=== PATIENT | male | born 1950 | race Caucasian/White ===

== ENCOUNTER 2019-12-30 18:03 | Observation (INO) | payer MEDICARE, OTHER ==
[2019-12-30] MEDS ORDERED: NS 0.9% 1000 ML** 1,000 ML IV ONE (18:09)
--- NOTE | 2019-12-30 18:28 | ED ---
GI/ HPI - HPI Summary HPI Summary: This pt is a 69 Y/O M presenting to [facility] with a CC of left flank pain that is rated an 8/10 in severity and has been present for 6 hours. He denies any fever , CP, headaches, SOB, vomiting, and hematuria. He states that the pain feels deep inside his body and not surface level like a muscle. He also reports nausea during the 6 hours. He states that he has a Hx of kidney stones but reports that this pain is very different than his normal stones. He denies any dysuria. He has no aggravating or alleviating factors. - History of Current Complaint Chief Complaint: EDFlankPain Time Seen by Provider: 12/30/19 18:05 Stated Complaint: LEFT FLANK PAIN Hx Obtained From: Patient Onset/Duration: Started Hours Ago - 6, Still Present Timing: Constant, Lasting Hours - 6 Current Severity: Severe Pain Intensity: 8 Location of Pain: Flank - L Associated Signs and Symptoms: Positive: Negative - fever headaches, Nausea, Flank Pain - L. Negative: Vomiting, Fever, Hematuria, Dysuria, Chills, Chest Pain Aggravating Factor(s): Nothing Alleviating Factor(s): Nothing - Allergy/Home Medications Allergies/Adverse Reactions: Allergies Allergy/AdvReac Type Severity Reaction Status Date / Time No Known Allergies Allergy Verified 12/30/19 18:07 Home Medications: Home Medications NK [No Home Medications Reported] 12/30/19 [History Confirmed 12/30/19] PMH/Surg Hx/FS Hx/Imm Hx Previously Healthy: Yes Endocrine/Hematology History: Denies: Hx Diabetes Cardiovascular History: Denies: Hx Hypertension Respiratory History: Denies: Hx Pneumonia History: Reports: Hx Kidney Stones Sensory History: Reports: Hx Contacts or Glasses Opthamlomology History: Reports: Hx Contacts or Glasses - Cancer History Hx Chemotherapy: No Hx Radiation Therapy: No - Surgical History Surgical History: Yes Surgery Procedure, Year, and Place: Kidney stone removal. stent placement - Immunization History Immunizations Up to Date: Yes Infectious Disease History: No Infectious Disease History: Denies: Traveled Outside the [place] in Last 30 Days - Family History Known Family History: Positive: Hypertension - Social History Occupation: Retired Lives: Alone Alcohol Use: Occasionally Hx Substance Use: No Substance Use Type: Reports: None Hx Tobacco Use: No Smoking Status (MU): Never Smoked Tobacco Review of Systems Negative: Fever, Chills Negative: Chest Pain Negative: Shortness Of Breath Positive: Nausea. Negative: Vomiting Positive: flank pain - L. Negative: dysuria, hematuria Negative: Headache All Other Systems Reviewed And Are Negative: Yes Physical Exam - Summary Physical Exam Summary: VITAL SIGNS: Reviewed. GENERAL: Patient is a well-developed and nourished male who is lying comfortable in the stretcher. Patient is not in any acute respiratory distress. HEAD AND FACE: No signs of trauma. No ecchymosis, hematomas or skull depressions. No sinus tenderness. EYES: PERRLA, EOMI x 2, No injected conjunctiva, no nystagmus. EARS: Hearing grossly intact. Ear canals and tympanic membranes are within normal limits. MOUTH: Oropharynx within normal limits. NECK: Supple, trachea is midline, no adenopathy, no JVD, no carotid bruit, no c- spine tenderness, neck with full ROM. CHEST: Symmetric, no tenderness at palpation. LUNGS: Clear to auscultation bilaterally. No wheezing or crackles. CVS: Regular rate and rhythm, S1 and S2 present, no murmurs or gallops appreciated. ABDOMEN: Soft, focal L sided flank tenderness, No signs of distention. No rebound, no guarding, and no masses palpated. Bowel sounds are normal. EXTREMITIES: FROM in all major joints, no edema, no cyanosis or clubbing. NEURO: Alert and oriented x 3. No acute neurological deficits. Speech is normal and follows commands. SKIN: Dry and warm. Triage Information Reviewed: Yes Vital Signs On Initial Exam: Initial Vitals Temp Pulse Resp BP Pulse Ox 98.2 F 84 18 186/113 94 12/30/19 18:05 12/30/19 18:05 12/30/19 18:05 12/30/19 18:05 12/30/19 18:05 Vital Signs Reviewed: Yes Procedures - Sedation Patient Received Moderate/Deep Sedation with Procedure: No Diagnostics - Vital Signs Vital Signs Temp Pulse Resp BP Pulse Ox 12/30/19 18:05 98.2 F 84 18 186/113 94 - Laboratory Result Diagrams: 12/30/19 18:21 12/30/19 18:21 Lab Statement: Any lab studies that have been ordered have been reviewed, and results considered in the medical decision making process. - CT CT A/P CT Interpretation Completed By: Radiologist Summary of CT Findings: 1. Mildly obstructing 23 mm calculus left UPJ. 2. Bilateral nephrolithiasis. ED physician has reviewed this report. Re-Evaluation - Re-Evaluation First Eval Re-Evaluation Time: 21:07 Comment: Pt prefers admission for pain control. Dr. De León available tomorrow for consultation. GIGU Course/Dx - Course Course Of Treatment: This pt is a 69 Y/O M presenting to [facility] with a CC of left flank pain that is rated an 8/10 in severity and has been present for 6 hours. He denies any fever, CP, headaches, SOB, vomiting, and hematuria. He states that the pain feels deep inside his body and not surface level like a muscle. His PE found that he has focal L sided flank pain. CT A/P: 1. Mildly obstructing 23 mm calculus left UPJ. 2. Bilateral nephrolithiasis. . He has an abnormalitiy in his APTT level. 2011: Dr. De León, urology, was consulted and stated that the pt would be ok with outpatient care tomorrow depending on his pain level. If the pt is in severe pain and needs increased management, he will be admitted to the hospitalist. Pt will be admitted to [facility] for pain management by Dr. Rodriguez, Hospitalist, at 2127. [employer] has agreed to consultation tomorrow. Pt will most likely need a Stent. - Diagnoses Provider Diagnoses: Left ureteral calculus - Physician Notifications Discussed Care Of Patient With: Julio Rodriguez Time Discussed With Above Provider: 21:29 Instructed by Provider To: Admit As Inpatient Admit/Transition Orders Completed By ED Provider: Yes Discharge ED - Sign-Out/Discharge Documenting (check all that apply): Patient Departure - admitted - Discharge Plan Condition: Good Disposition: ADMITTED TO [facility] Referrals: Harpreet De León MD [Medical Doctor] - As Soon As Possible - Billing Disposition and Condition Condition: GOOD Disposition: Admitted to [facility] - Attestation Statements Document Initiated by Scribe: Yes Documenting Scribe: Jaspal Rhoades Provider For Whom Scribe is Documenting (Include Credential): Rogerio Benjamin MD Scribe Attestation: Jaspal Hedrick, scribed for Rogerio Benjamin MD on 12/30/19 at 2144. Scribe Documentation Reviewed: Yes Provider Attestation: The documentation as recorded by the scribe, Jaspal Rhoades accurately reflects the service I personally performed and the decisions made by me, Rogerio Benjamin MD Status of Scribe Document: Viewed
[2019-12-30 18:30] LABS: ABS Basophils 0.1 10^3/ul (0-0.2); ABS Eosinophils 0.2 10^3/ul (0-0.6); ABS Lymphocytes 1.8 10^3/ul (1.0-4.8); ABS Monocytes 1.2 10^3/ul (0-0.8); ABS Neutrophils 7.1 10^3/ul (1.5-7.7); Eosinophil % 2.2 %; Hematocrit 48 % (42-52); Hemoglobin 16.2 g/dL (14.0-18.0); Mean Corpuscular HGB Conc 34 g/dL (31-36); Mean Corpuscular Hemoglobin 30 pg (27-31); Mean Corpuscular Volume 87 fL (80-94); Mean Platelet Volume 7.2 fL (7.4-10.4); Platelet Count 198 10^3/uL (150-450); Red Blood Count 5.46 10^6 /uL (4.18-5.48); Red Cell Distribution Width 15 % (10-15); White Blood Count 10.3 10^3/uL (3.5-10.8)
[2019-12-30 18:47] LABS: Albumin 4.1 g/dL (3.2-5.2); Albumin/Globulin Ratio 1.5 (1-3); BUN/Creatinine Ratio 17.8 (8-20); Calcium 9.5 mg/dL (8.6-10.3); EGFR African American 100.7 (>60); EGFR Non-African American 83.2 (>60); Globulin 2.8 g/dL (2-4); Potassium 4.1 mmol/L (3.5-5.0); Total Bilirubin 0.4 mg/dL (0.2-1.0); Total Protein 6.9 g/dL (6.4-8.9)
[2019-12-30 19:44] LABS: Urine Appearance Cloudy; Urine Bilirubin Negative (Negative); Urine Blood 3+ (Negative); Urine Color Yellow; Urine Glucose Negative (Negative); Urine Ketones Negative (Negative); Urine Nitrite Negative (Negative); Urine Protein Negative (Negative); Urine Specific Gravity 1.015 (1.010-1.030); Urine Urobilinogen Negative (Negative)
[2019-12-30 19:46] LABS: Urine Bacteria Absent (Absent); Urine Red Blood Cell 3+(>10/hpf) (Absent); Urine White Blood Cell Trace(0-5/hpf) (Absent)
[2019-12-30 19:48] LABS: Activated Partial Thrombo Time 38.9 seconds (26.0-38.0); INR 1.05 (0.82-1.09)
[2019-12-30] MEDS ORDERED: Ondansetron INJ* 2 MG/ML VIAL IV ONE (19:53)
[2019-12-30] MEDS ORDERED: Morphine 4 MG/ML VIAL (1 ml) 4 MG/ML VIAL IV ONE (19:53)
[2019-12-30] MEDS ORDERED: Ketorolac INJ* 30 MG/ML 1 ML VIAL IV PUSH ONE (19:54)
[2019-12-30] MEDS ORDERED: Tamsulosin CAP* 0.4 MG PO ONE (20:11)
[2019-12-30] MEDS ORDERED: Acetaminophen TAB* 325 MG PO PRN (22:16)
[2019-12-30] MEDS ORDERED: Ondansetron INJ* 2 MG/ML VIAL IV PRN (22:16)
[2019-12-30] MEDS ORDERED: NS 0.9% 1000 ML** 1,000 ML IV SCH ×3 (22:30→22:34)
[2019-12-31] MEDS: Heparin VIAL(*) 5000 UNITS/ML VIAL (FIVE THOUSAND) SUBCUT SCH ×3 (00:28→14:19)
[2019-12-31] MEDS: Morphine INJ* 4 MG/ML 1 ML SYRINGE (NEW SYRINGE VERSION) IV PRN ×2 (00:34→04:52)
--- NOTE | 2019-12-31 01:45 | HP ---
CC: Dr. Sahu; Dr. De León * HISTORY AND PHYSICAL: DATE OF ADMISSION: 12/30/19. PRIMARY CARE PROVIDER: Dr. Sahu. ATTENDING PHYSICIAN WHILE IN THE HOSPITAL: Dr. Rodriguez * (report being dictated by Luba Velasco NP). CONSULTING UROLOGIST: Dr. De León. CHIEF COMPLAINT: Left flank pain. HISTORY OF PRESENT ILLNESS: Mr. Suggs is a 69-year-old male patient, who has a history of nephrolithiasis in the past, requiring ureteral stenting back in 2011. He also carries a history of hypertension, although he is not on any medications for it. He comes in today. He states for the last year, he has been having intermittent left-sided flank pain. That was a 3-4 out of 10 pain. That would go away after he had a bowel movement. However, over the last 24 hours, he has had progressive worsening left flank pain that is as high as a 10/ 10. He notes that the pain started getting more sharp and intense throughout the day today. It started this afternoon. He thought it was a typical pain. However, he noted that it progressively was getting worse. He went home. He tried eating something. He was going to take a nap, but unfortunately, the pain just kept getting progressively worse. He could not lay on the left side. He felt nauseated, but did not vomit. He was concerned, he called his brother and said that he would like to be taken to the hospital and his brother brought him into the hospital to be evaluated. He states that he has not had any fevers or chills. He has not had any recent diarrhea. He has not had any vomiting associated with this, but given the fact that he was having left sided abdominal pain. He was evaluated here in the ER and ultimately was found to have a mildly obstructive 2.3 cm stone at the left UVJ with bilateral nephrolithiasis noted and because of this we were asked to evaluate for admission. He denies having any chest pain or shortness of breath. He does state that he is very active. He does not have chest pain or shortness of breath associated with activity. He states that he has not been sick recently. No fevers, chills or vomiting. No diarrhea. No cold-like or cough-like symptoms and no recent travel, but because of the obstructing stone and the size , we were asked to evaluate for admission. He took 2 aspirin today to help with the pain, but it did not help. PAST MEDICAL HISTORY: Significant for: 1. Nephrolithiasis. 2. Kidney stones. PAST SURGICAL HISTORY: 1. He has had an appendectomy. 2. Back surgery. 3. He has had lithotripsy in the past. HOME MEDICATIONS: He does state that he takes aspirin 325 p.o. daily. ALLERGIES: His allergies to medications include no known drug allergies. FAMILY HISTORY: His mother had a history of cancer. Father had a brain aneurysm. SOCIAL HISTORY: He rarely drinks alcohol. He used to smoke. He quit over 20 years ago. He smoked for about 20 years. Surrogate decision maker is his sister and his brother. REVIEW OF SYSTEMS: There is no documented fever. Denied having any significant weight change. There is no rhinorrhea. No sore throat. No thyroid enlargement. Denied having any chest pain. There is no orthopnea. No nocturnal dyspnea. There was abdominal pain from my HPI in the left flank. There was nausea, but no vomiting. No dysuria, no frequency, no seizure, no loss of consciousness, no pruritus, and no skin ulcerations. Review of 14 systems completed, all others negative. PHYSICAL EXAMINATION GENERAL: At this time, Mr. Suggs is a 69-year-old male patient. He is sitting in the ED stretcher. He does not appear to be in any acute distress. He appears to be well nourished and well developed. VITAL SIGNS: Blood pressure 185/92, pulse 74, respirations 20, O2 saturation 98 %, and temperature 97.8. HEENT: Head atraumatic, normocephalic. Eyes: EOMs are intact. Sclerae anicteric and not pale. Throat: Oral mucosa appears to be moist. No oropharyngeal erythema. NECK: Supple. LUNGS: Clear to auscultation bilaterally. No wheezes, rales or rhonchi. HEART: Heart sounds S1, S2. He had a regular rate and rhythm. No murmurs, rubs or gallops. ABDOMEN: Soft. It was flat. It was nontender. Bowel sounds were present. He had no CVA tenderness. EXTREMITIES: Pulses were 2+ throughout. He is moving all 4 extremities with 5/ 5 strength. No peripheral edema. NEUROLOGIC: He is awake, alert, and oriented x3. Speech clear. Tongue was midline. Civil Drafter were equal. No focal deficits noted. SKIN: Intact. DIAGNOSTIC STUDIES/LAB DATA: His lab today revealing a WBC of 10.3, RBC of 5.46 , hemoglobin of 16.2, hematocrit of 48, platelet count 198. The INR 1.05, PTT of 38.9. Sodium 137, potassium 4.1, chloride 104, bicarb 27, BUN 16, creatinine of 0.90, glucose 114, calcium 9.5. Total bili is 0.48, AST 21, ALT 25, alk-phos 71. Albumin 4.1. Urine showed 3+ blood, 3+ rbc's. He had a CT of the abdomen and pelvis, impression: Mildly obstructing 23 mm calculus left UPJ, bilateral nephrolithiasis. Old medical records were reviewed. ASSESSMENT AND PLAN: Mr. Suggs is a 69-year-old male patient coming into the ED today with complaints of abdominal discomfort and worsening in the left flank and evaluation in the ED with CT abdomen and pelvis found that he had a 23 -mm obstructing stone in the left side. Urology was consulted by the ED. We were asked to evaluate for admission to be admitted under observation status for : 1. Nephrolithiasis to the left kidney with mild obstruction. At this point, Dr. De León has been consulted. The plan will be for possible stenting and lithotripsy tomorrow. In terms of medical re-stratification, his EKG shows no acute findings at this point and shows a normal sinus rhythm with a rate at 85. No ST elevation or T-wave inversion noted. He again is active and is not having any active chest pain. I am awaiting chest x-ray, pending any discrepancies with the chest x-ray. He will be medically optimized for surgery. His blood pressure was elevated. However, that was in the setting of pain, I am going to monitor this closely and we will treat if needed. I will defer further management to Dr. De León. I am going to go ahead and strain his urine. I have ordered medications for pain control and Zofran for nausea, and we will keep him on normal saline at 125 cc an hour while he is n.p.o. and I will defer further management to Dr. De León, and has been given Flomax. 2. Hypertension. Again, he has not been treated for this for sometime. Blood pressure when he came was elevated; however, that could have been in the setting of pain, we will monitor this and treat if indicated. I would treat for systolics greater than 180 and diastolics greater than 100. 3. DVT prophylaxis: He will be placed on heparin subcu, he is high risk. 4. Code status: Full code. 5. Fluids, electrolytes, and nutrition: He will be n.p.o. after midnight. He can have a heart healthy diet up until then. TIME SPENT: Time spent on the admission was 60 minutes, greater than half the time was spent [id number] with the patient obtaining my history of physical; the other half time was spent going over the plan of care with the patient and implementing plan of care. I did discuss the plan of care with my attending, Dr. Rodriguez; he is in agreement. LUBA VELASCO NP [id number]/[facility] #: [id number] BETTY
[2019-12-31] MEDS ORDERED: NS 0.9% 500 ML* 500 ML IV ONE (05:49)
[2019-12-31] MEDS ORDERED: NS 0.9% 1000 ML** 1,000 ML IV SCH (05:50)
[2019-12-31] MEDS ORDERED: Ketorolac INJ* 15 MG/ML 1 ML VIAL IV PUSH ONE (06:29)
[2019-12-31 07:08] LABS: ABS Basophils 0.1 10^3/ul (0-0.2); ABS Eosinophils 0.1 10^3/ul (0-0.6); ABS Lymphocytes 1.1 10^3/ul (1.0-4.8); ABS Monocytes 0.9 10^3/ul (0-0.8); ABS Neutrophils 5.3 10^3/ul (1.5-7.7); Eosinophil % 1.9 %; Hematocrit 43 % (42-52); Hemoglobin 14.7 g/dL (14.0-18.0); Lymphocyte % 14.2 %; Mean Corpuscular HGB Conc 34 g/dL (31-36); Mean Corpuscular Hemoglobin 30 pg (27-31); Mean Corpuscular Volume 88 fL (80-94); Mean Platelet Volume 7.5 fL (7.4-10.4); Platelet Count 159 10^3/uL (150-450); Red Blood Count 4.95 10^6 /uL (4.18-5.48); Red Cell Distribution Width 15 % (10-15); White Blood Count 7.6 10^3/uL (3.5-10.8)
[2019-12-31 07:15] LABS: INR 1.11 (0.82-1.09)
[2019-12-31 07:26] LABS: BUN/Creatinine Ratio 18.3 (8-20); Calcium 8.3 mg/dL (8.6-10.3); EGFR African American 85.2 (>60); EGFR Non-African American 70.4 (>60); Potassium 4.2 mmol/L (3.5-5.0)
[2019-12-31] MEDS ORDERED: Buffered Lidocaine 1% SYRIN* 1 ML/SYRINGE INTRADERM ONE (08:33)
[2019-12-31] MEDS ORDERED: Famotidine IV* 10 MG/ML 2 ML (20 mg) IV ONE (08:33)
[2019-12-31] MEDS ORDERED: Lactated Ringers 1000 ML Bag* 1,000 ML IV SCH (09:00)
[2019-12-31] MEDS ORDERED: Iohexol 180 (CONTRAST) 10 ML SDV IV ONE (11:14)
[2019-12-31] MEDS ORDERED: fentaNYL* 50 MCG/ML 2 ML VIAL (100 MCG VIAL) ONE (11:16)
[2019-12-31] MEDS ORDERED: KETAMINE HCL* 50 MG/ML 10 ML VIAL ONE (11:17)
[2019-12-31] MEDS ORDERED: Midazolam* 1 MG/ML 5 ML VIAL (5 MG) ONE (11:17)
[2019-12-31] MEDS ORDERED: cefTRIAXone(*) 2 GM ADDV.VIAL IVPB ONE (12:20)
[2019-12-31] MEDS ORDERED: Lidocaine 2% PF * 5 ML VIAL ONE (12:59)
[2019-12-31] MEDS ORDERED: Ondansetron INJ* 2 MG/ML VIAL ONE (12:59)
[2019-12-31] MEDS ORDERED: Propofol* 10 MG/ML 20 ML BTL ONE (12:59)
[2019-12-31] MEDS ORDERED: Phenylephrine 40 MCG/ML SYRINGE ONE (12:59)
[2019-12-31] MEDS ORDERED: Dexamethasone IV* 4 MG/ML 1 ML (4 MG) ONE (12:59)
[2019-12-31] MEDS ORDERED: Acetaminophen IV 1GM/100ML * 100 ML ONE (12:59)
[2019-12-31] MEDS ORDERED: HYDROmorphone INJ1* 1 MG/ML SYRINGE IV PRN (13:18)
[2019-12-31] MEDS ORDERED: DiMENhydriNATE IV* 50 MG/ML VIAL IV PUSH PRN (13:18)
[2019-12-31] MEDS ORDERED: oxyCODONE TAB* 5 MG TAB PO PRN (13:18)
[2019-12-31] MEDS ORDERED: Naloxone* 0.4 MG/ML 1 ML VIAL IV PRN (13:18)
[2019-12-31] MEDS ORDERED: PROCHLORPERAZINE INJ 5 MG/ML 2 ML VIAL IV PRN (13:18)
[2019-12-31] MEDS ORDERED: fentaNYL* 50 MCG/ML 2 ML VIAL (100 MCG VIAL) IV PRN (13:18)
[2019-12-31] MEDS ORDERED: Ketorolac INJ* 30 MG/ML 1 ML VIAL IV PRN (13:18)
[2019-12-31] MEDS ORDERED: oxyCODONE/Acetamin 5/325 MG* TAB PO PRN (14:22)
[2019-12-31] MEDS ORDERED: LR @ 40 MLS/HR IV SCH (15:00)
[2019-12-31 16:36] VITALS: BP 159/97
--- NOTE | 2020-01-01 00:35 | OP ---
CC: Dr. Mikhail Sahu * DATE OF OPERATION: 12/31/19 - ROOM #348 DATE OF : 46 SURGEON: Harpreet De León MD. ANESTHESIOLOGIST: Dr. Dennis Mobley. ANESTHESIA: General. PRE-OP DIAGNOSES: 1. Left renal colic. 2. Large left renal calculus (2.5 cm). 3. Left hydronephrosis due to above. POST-OP DIAGNOSES: 1. Left renal colic. 2. Large left renal calculus (2.5 cm). 3. Left hydronephrosis due to above. OPERATIVE PROCEDURE: 1. Cystoscopy. 2. Left retrograde pyelography. 3. Insertion of left ureteral stent (6 Haitian). INDICATION FOR PROCEDURE: Mr. Suggs is a 69-year-old white male who presented to the emergency room last night with symptoms of left renal colic. There was no associated fever or chills and his urinalysis showed microscopic hematuria was negative otherwise. Noncontrast CT of the abdomen and pelvis showed moderate left hydronephrosis and there was a 2.5 cm calculus in the left renal pelvis and a 3 to 5 mm calculus in the proximal left ureter. The patient was managed with pain medication and IV fluids. He is taken to the operating room today for insertion of a left ureteral stent in preparation for definitive treatment of the stone. PATHOLOGY: At cystoscopy, the penile and bulbar urethrae looked normal. The prostatic urethra measured about 3 cm in length and with significant degree of obstruction by trilobar hyperplasia of the prostate with a prominent median lobe. The ureteral orifices looked normal. There were no suspicious bladder lesions seen. No calculi and no diverticula were noted. There was minimal bladder trabeculations. Upon fluoroscopy of the left kidney and at left retrograde pyelography, there was moderate left hydronephrosis and a large radiopaque calculus in the area of the renal pelvis just above the ureteropelvic junction. DESCRIPTION OF PROCEDURE: After successful general anesthesia, the patient was placed in the lithotomy position and was prepped and draped for a cystoscopy. Cystoscopy was performed. The bladder was carefully inspected and the above findings were noted. A flexible-tip hybrid guidewire was then introduced into the left ureteral orifice and passed without difficulty into the area of the renal pelvis beyond the renal calculus. Retrograde pyelography was then performed, demonstrating the hydronephrosis and confirming the location of the calculus in the renal pelvis. A 6-Haitian stent was then placed with the proximal end coiling in the renal pelvis adjacent to the stone and the distal end coiling inside the bladder. There was good drainage of contrast from the kidney and no extravasation. The bladder was then emptied. The cystoscope was removed. A rectal examination was done at the end of the case, showing an enlarged but non-suspicious prostate. The patient tolerated the procedure well and left the operating room in good condition. The plan is to refer the patient to [facility] where he will undergo percutaneous lithotripsy for definitive treatment of the stone. [id number]/[facility] #: [id number] MTDD
--- NOTE | 2020-01-01 13:25 | DS ---
CC: Dr. Mikhail Sahu; Dr. De León * DISCHARGE SUMMARY: DATE OF ADMISSION: 12/30/19 DATE OF DISCHARGE: 12/31/19 PRIMARY CARE PROVIDER: Mikhail Sahu MD ATTENDING PHYSICIAN: Dr. Sumaya Hopkins.* (DICTATED BY DEBO MEHTA) UROLOGIST: Dr. De León. PRIMARY DIAGNOSIS: Left nephrolithiasis with mild obstruction, status post ureteral stent placement. SECONDARY DIAGNOSIS: History of nephrolithiasis. STUDIES WHILE IN THE HOSPITAL: 1. CT abdomen and pelvis without, impression: Mildly obstructing 23 mm calculus left UPJ, bilateral nephrolithiasis. 2. Chest x-ray, impression: Limited study, no active cardiopulmonary disease. 3. KUB, impression: Left nephrolithiasis with left ureteral stent. DISCHARGE MEDICATIONS: Home medications: None. New home medications: Ibuprofen as needed for pain. HISTORY OF PRESENT ILLNESS/HOSPITAL COURSE: Mr. Suggs is a 69-year-old male with a past medical history of nephrolithiasis with a history of stenting in 2011, who presented to the ER on 12/30/19 with complaints of left flank pain. He was found to have a 2.3 cm stone at the left UPJ that was obstructive as well as bilateral nephrolithiasis. For this, the patient was admitted with consult to Urology. The patient did not appear to have any hydronephrosis. His kidney function appeared to be intact throughout his stay. The day after admission, the patient had a left ureteral stent placed. Prior to discharge, a KUB was done which shows proper placement of ureteral stent with continued left nephrolithiasis. The patient will be discharged home on ibuprofen. He will have very close followup with Dr. De León, who will consult urologist at [facility] and arrange for an appointment for lithotripsy. The patient understands and is agreeable to this. At this time, he reports 1 episode of mildly pink urine. Since then, his urine has been clear. He is urinating without difficulty. He denies chest pain, shortness of breath, cough, fevers, chills, abdominal pain, nausea, vomiting, diarrhea, constipation, flank pain, myalgias, or arthralgias. Mr. Suggs is safe for discharge home. PHYSICAL EXAMINATION: Vital Signs: Temperature 98.8 oral, heart rate 84, respiratory rate 16, oxygen saturation 94% on room air, blood pressure 159/97. General: Mr. Suggs is a well-developed, well-nourished, obese older white male who is sitting up in bed. He appears to be in no acute distress. He is pleasant, cooperative, and appropriate. He moves without difficulty. HEENT: PERRL. EOMI. Visual tsephen grossly intact. Hearing is grossly intact. Oral mucous membranes are moist. There are no lesions. Oropharynx is clear. Tongue is at midline. Palate elevates symmetrically. Cardiovascular: Regular rate and rhythm. S1, S2 present. No murmurs, rubs, clicks, or gallops. There is no JVD or peripheral edema. Pulmonary: Symmetrical chest expansion without use of accessory muscles. Clear to auscultation bilaterally. No rhonchi, wheezes, or rales. Abdomen: Bowel sounds in all quadrants. Soft, nontender to palpation. There is no CVA tenderness. Neuro: The patient is awake. He is alert and oriented x3 with cranial nerves II through XII grossly intact. He has the ability to move all of his extremities bilaterally with equal strength. DISCHARGE PLAN: Mr. Suggs will be discharged to home. CONDITION: Good. DIET: Resume home diet. ACTIVITY: As tolerated. MEDICATIONS: Ibuprofen as needed p.r.n. pain. EDUCATION: 1. Dr. De León will call within the next 1 to 2 days with appointment date and time for lithotripsy in [place]. Please follow up with his office if you do not receive a call within 48 hours. 2. Follow up with Dr. De León as scheduled. 3. Follow up with primary care provider in 4 to 7 days. 4. Return to the ER or nearest hospital for return or worsening of symptoms, chest pain or discomfort, shortness of breath, dizziness, lightheadedness, loss of consciousness, high fever, chills, night sweats. Return for hematuria, flank pain, recurrence of symptoms. This is a summarized report of a complex medical history and hospital stay. For further details, please see the entire medical record. TIME SPENT: Approximately 30 minutes was spent on this discharge, greater than half that time was spent [id number] with the patient discussing discharge plans and instructions. DEBO MEHTA [id number]/[facility] #: [id number] BETTY
== END 2019-12-31 17:40 | disposition home or self-care (01) ==
LOC: ED 18:03 → SSU 22:12
PROVIDERS: ADMIT Family Medicine; ATTEND Internal Medicine
DX: N13.2 Hydronephrosis with renal and ureteral calculous obstruction (principal); R10.84 Generalized abdominal pain; I10 Essential (primary) hypertension; R94.31 Abnormal electrocardiogram [ECG] [EKG]; Z87.442 Personal history of urinary calculi; Z87.891 Personal history of nicotine dependence; Z79.82 Long term (current) use of aspirin
CPT/HCPCS: 36415; 71045; 74018; 74176; 74420; 80048; 80053; 81003; 81015; 85025; 85610; 85730; 87086; 93005; 96361; 96372; 96374; 96375; 96376; 99285; G0378; J0696; J1100; J1644; J1885; J2250; J2270; J2405; J2704; J3010